=== PATIENT | female | born 1980 | race Two or more races ===

== ENCOUNTER → 2019-10-03 | Emergency (ER) | payer MEDICAID, OTHER ==
[~2019-10-03] VITALS: Ht 162.6 cm; Wt 90.7 kg
[~2019-10-03] MED LIST: ACETAMINOPHEN/CODEINE#3 (300/30mg) TAB PO ONE; methylPREDNISolone SOD SUCC 125 MG/2 ML VL IM ONE
[2019-10-03 15:25] VITALS: BP 115/71
== END | disposition home or self-care (01) ==
LOC: ER 15:05
DX: M25.461 Effusion, right knee (principal); N39.0 Urinary tract infection, site not specified; Z90.49 Acquired absence of other specified parts of digestive tract
CPT/HCPCS: 73562; 81002; 96372; 99283; J2930